=== PATIENT | female | born 1960 | race Caucasian/White ===

== ENCOUNTER 2018-06-06 10:04 | Outpatient (CLI) | payer MEDICAID ==
[~2018-06-06] VITALS: Ht 167.6 cm; Wt 112.7 kg
--- NOTE | ~2018-06-06 | OP ---
PATIENT NAME: GENNY FOOTE MEDICAL RECORD: [id number] :60 LOCATION:D. D.5 ADMISSION DATE: SURGEON: EMA PETERSEN MD DATE OF OPERATION: 06/06/2018 PREOPERATIVE DIAGNOSES: 1. Sick sinus syndrome. 2. Atrial fibrillation. 3. Hypertension. POSTOPERATIVE DIAGNOSES: 1. Sick sinus syndrome. 2. Atrial fibrillation. 3. Hypertension. PROCEDURE: Left subclavian vein dual lead pacemaker placement. SURGEON: Ema Petersen MD CO-SURGEON: Claude Butts MD REPORT OF PROCEDURE: The patient's left chest was prepped and draped in sterile fashion. Then, 25 mL of 1% lidocaine with epinephrine was infused into the surrounding tissues. A skin incision was made on the left superior lateral aspect of the chest and a subcutaneous pouch was made over the pectoral fascia. Needle was used to cannulate the left subclavian vein times 2 and guidewires were advanced with ease. Fluoro was used to note that these wires were in good position in the venous system. The dilator trocar devices were placed over the wires and the wires and dilators were removed. The leads were advanced through the trocars. At this point, Dr. Butts positioned the leads appropriately in the atrium and ventricle. Once the leads were noted to be functioning appropriately, they were sutured into place with 0 Ti-Cron. The leads were then affixed to the pacemaker and the pacemaker was placed into the subcutaneous pouch and sutured to the pectoral fascia with a single interrupted 0 Ti-Cron. We irrigated out the wound with antibiotic solution and then reapproximated the subcutaneous tissues with interrupted 3-0 Vicryl. The skin was closed with running subcutaneous 5-0 Monocryl and dressed appropriately. COMPLICATIONS: None. CONDITION: Stable. ANESTHESIA: Local MAC. BLOOD LOSS: Minimal. TRANSINT:[id number] Voice Confirmation ID: [id number] DOCUMENT ID: [id number] OPERATIVE REPORT [id number] GENNY FOOTE CHRISTIAN MD at 1418 CC: [id number] DICTATION DATE: 06/06/18 1337 CAN PUSHER: 06/06/18 [id number] [place] [address]
--- NOTE | ~2018-06-06 | HEMODYNAMI ---
PATIENT:GENNY FOOTE MEDICAL RECORD: [id number] : 60 LOCATION:DSantiagoCAT ADMISSION DATE: 06/06/18 Generatedon:06/06/201813:39 Patient name: GENNY FOOTE Patient #: [id number] SSN: : 1960 Date of study: 06/06/2018 Page: Of Hemodynamic Procedure Report Patient Data Patient Demographics Procedure consent was obtained First Name: GENNY Gender: Female Last Name: QAMAR : 1960 [facility] Initial: E Age: 57 year(s) Patient #: [id number] Race: Unknown Additional ID: [id number] Contact details Address: [address] [address] State: [place] City: [place] Zip code: [address] Past Medical History Allergies Allergen Reaction Date Comments Reported Other allergy 06/06/2018 SULFA, LATEX Admission Admission Data Admission Date: 06/06/2018 Admission Time: 10:04 Lab Results Lab Result Date: 06/06/2018 Lab Result Time: 0:00 Biochemistry Name Units Result Min Max BUN mg/dl 8 --(*---)-- 7 18 Creatinine mg/dl 0.7 --(*---)-- 0.6 1.3 CBC Name Units Result Min Max Hemoglobin g/dl 13.2 -*(----)-- 13.5 17.5 Procedure Procedure Types Cath Procedure Diagnostic Procedure PPM/ICD PPM Dual Implant Sedation Charges Moderate Sedation up to 15 minutes Procedure Description Procedure Date Procedure Date: 06/06/2018 Procedure Start Time: 13:08 Procedure End Time: 13:37 Procedure Staff Name Function Claude Patrick MD Performing Physician Threesa Lopez RT Monitor Irlanda Vizcarra RT Scrub Rayo Aguilar RN Nurse Shaheen Brown MD Assisting physician Procedure Data Cath Procedure Fluoroscopy Diagnostic fluoroscopy Total fluoroscopy Time: 1.3 time: 1.3 min min Diagnostic fluoroscopy Total fluoroscopy dose: 50 dose: 50 mGy mGy Estimated blood loss: 10 ml Procedure Complications No complications Procedure Medications Medication Administration Route Dosage 0.9% NaCl I.V. 100 ml/hr Oxygen etCO2 Nasal cannula 2 l/min Lidocaine 1% with added to field 30 ml Epi Bupivacaine 0.5% added to field 10 ml Ancef Irrigation Topical 1 g (1gm/500ml NS) Ancef (1Gm/50ml NS) I.V.P.B 1 g Zofran I.V. 4 mg Versed I.V. 2 mg Fentanyl I.V. 100 mcg Versed I.V. 2 mg Fentanyl I.V. 50 mcg Hemodynamics Rest HGB: 13.2 (g/dl) Heart Rate: 60 (bpm) Snapshots Pre Cath Intra NCS Post Cath Vital Signs Time Heart Resp SPO2 etCO2 NIBP (mmHg) Rhythm Pain Sedation Rate (ipm) (%) (mmHg) Status Level (bpm) 12:54:16 65 23 100 36.8 191/75(143) NSR 0 (11) 10(A) , No pain 12:59:15 64 13 100 41.2 187/68(142) NSR 0 (11) 10(A) , No pain 13:04:12 60 12 100 38.2 183/65(125) NSR 0 (11) 10(A) , No pain 13:09:02 59 15 100 42 169/75(123) NSR 0 (11) 10(A) , No pain 13:13:51 66 17 100 37.5 163/67(107) NSR 0 (11) 10(A) , No pain 13:19:33 65 13 100 33 160/60(101) NSR 0 (11) 9(A) , No pain 13:24:18 68 14 99 36 160/65(98) NSR 0 (11) 9(A) , No pain 13:29:11 64 14 100 34.5 163/47(115) NSR 0 (11) 9(A) , No pain 13:34:00 66 26 100 33.7 164/61(113) NSR 0 (11) 9(A) , No pain Medications Time Medication Route Dose Verified Delivered Reason Notes Effectiv eness by by 12:55:10 0.9% NaCl I.V. 100 Rayo Rayo Per ml/hr Lauren Aguilar physician RN RN 12:55:19 Oxygen etCO2 2 Rayo Rayo Per Nasal l/min Lorigan Lorigan physician cannula RN RN 12:55:31 Lidocaine added 30 ml Rayo Rayo for local 1% with Epi to Lorigan Lorigan anesthetic field RN RN 12:56:50 Bupivacaine added 10 ml Rayo Rayo for local 0.5% to Lorigan Lorigan anesthetic field RN RN 12:57:25 Ancef Topical 1 g Rayo Rayo used for Irrigation Lorigan Lorigan procedure (1gm/500ml RN RN NS) 12:58:04 Ancef I.V.P.B 1 g Rayo Rayo Per (1Gm/50ml Lorigan Lorigan physician NS) RN RN 13:03:38 Zofran I.V. 4 mg Rayo Rayo for nausea Lorigan Lorshankar RN RN 13:08:49 Versed I.V. 2 mg Rayo Rayo for Lorigan Lorigan sedation RN RN 13:08:58 Fentanyl I.V. 100 Rayo Rayo for mcg Lorigan Lorigan sedation RN RN 13:10:25 Versed I.V. 2 mg Rayo Rayo for Lorigan Lorigan sedation RN RN 13:12:54 Fentanyl I.V. 50 Rayo Rayo for mcg Lorigan Lorigan sedation RN outsole beveler Log Time Note 12:34:15 Time tracking: Regular hours (M-F 7:00 - 5:00) 12:34:19 Plan of Care:Hemodynamics will remain stable., Cardiac rhythm will remain stable., Comfort level will be maintained., Respiratory function will remain adequate., Patient/ family verbilizes understanding of procedure., Procedure tolerated without complication., Recovers from procedure without complications.. 12:34:23 Rayo Aguilar RN sent for patient. Start room use. 12:40:49 Patient allergic to Other allergySULFA, LATEX 12:41:14 Lab Result : BUN 8 mg/dl 12:41:15 Lab Result : Creatinine 0.7 mg/dl 12:41:15 Lab Result : Hemoglobin 13.2 g/dl 12:42:18 Medtronic Advisa MRI PPM Dual Generator [id number] opened to sterile field. 12:42:34 Medtronic 4574-45 PPM Lead opened to sterile field. 12:42:41 Medtronic 4074-52 PPM Lead opened to sterile field. 12:44:47 Patient received from Pre/Post Procedure Room to [facility] 3 Alert and oriented. Tansferred to table in Supine position. 12:44:48 Warm blankets applied, and jaleesa hugger turned on for patient comfort. 12:44:49 Correct patient and procedure confirmed by team. 12:44:50 Signed procedure consent form obtained from patient. 12:44:51 ECG and BP/O2 sat monitors applied to patient. 12:52:38 Vital chart was started 12:52:39 Full Disclosure recording started 12:53:39 Baseline sample Acquired. 12:53:42 Rhythm: sinus rhythm 12:53:52 H&P Date Dictated: 05/19/2018 Within 30 days and on chart., H&P Addendum completed by physician on day of procedure. (MUST COMPLETE FOR ALL OUTPATIENTS). 12:53:53 Pre-procedure instructions explained to patient. 12:53:53 Pre-op teaching completed and patient verbalized understanding. 12:53:54 Family in patients room. 12:53:56 Patient NPO since Midnight. 12:53:58 Is the patient allergic to Iodine/contrast media? No. 12:54:00 Is patient on blood thinner?No 12:54:01 Patient diabetic? No. 12:54:03 Patient not . Patient is over age 55. 12:54:08 Previous problem with sedation/anesthesia? Yes NAUSEA 12:54:10 Snore? Yes 12:54:11 Sleep apnea? No 12:54:12 Deviated septum? No 12:54:13 Opens mouth fully? Yes 12:54:13 Sticks out tongue? Yes 12:54:15 Airway obstruction? No ? 12:54:17 Dentures? No ? 12:54:29 IV patent on arrival in left hand with 0.9% NaCl at O. 12:54:32 Lab results completed and on chart. 12:54:36 Left chest area was prepped with chlora-prep and draped in sterile fashion 12:54:37 Alarms reviewed by R. N. 12:54:37 Sharps counted by scrub and verified by R.N. 12:55:10 0.9% NaCl 100 ml/hr I.V. was administered by Rayo Aguilar RN; Per physician; 12:55:19 Oxygen 2 l/min etCO2 Nasal cannula was administered by Rayo Aguilar RN; Per physician; 12:55:19 Medtronic telemarketing representative KALEY DUNCAN present for procedure. 12:55:31 Lidocaine 1% with Epi 30 ml added to field was administered by Rayo Aguilar RN; for local anesthetic; 12:56:50 Bupivacaine 0.5% 10 ml added to field was administered by Rayo Aguilar RN; for local anesthetic; 12:57:25 Ancef Irrigation (1gm/500ml NS) 1 g Topical was administered by Rayo Aguilar RN; used for procedure; 12:58:04 Ancef (1Gm/50ml NS) 1 g I.V.P.B was administered by Rayo Aguilar RN; Per physician; 13:03:38 Zofran 4 mg I.V. was administered by Rayo Aguilar RN; for nausea; 13:03:55 Pre sharps counted by scrub and verified by RN: Sutures: 7; Sponges: 5; Stick needles: 2; Skin needles: 2; Blade: 1; Cautery: 1 13:03:57 Grounding pad site Left thigh. 13:03:58 Grounding pad site free from injury. 13:07:31 --------ALL STOP TIME OUT------ 13:07:31 Final Timeout: patient, procedure, and site verified with staff and physician. All members of the team are in agreement. 13:07:34 Left chest site verified by team. 13:07:37 Physical assessment completed. ASA score P 2 - A patient with mild systemic disease as per Claude Patrick MD. 13:07:41 Sedation plan: IV Moderate Sedation Medication:Versed, Fentanyl 13:07:48 Procedure started. 13:08:46 Lidocaine 1% w/epi and Bupivacaine 0.5% was administered to left subclavicular area by Shaheen Brown MD . 13:08:49 Versed 2 mg I.V. was administered by Rayo Aguilar RN; for sedation; 13:08:58 Fentanyl 100 mcg I.V. was administered by Rayo Aguilar RN; for sedation; 13:09:17 Incision made to left subclavicular area. 13:09:31 Mepilex Dressing (307118) opened to sterile field. 13:09:39 5-0 Monocryl PS3 [id number] opened to sterile field. 13:09:46 2-0 Ticron Multipack ([id number]) opened to sterile field. 13:09:52 3-0 Vicryl Single Pack [id number] opened to sterile field. 13:10:25 Versed 2 mg I.V. was administered by Rayo Aguilar RN; for sedation; 13:12:54 Fentanyl 50 mcg I.V. was administered by Rayo Aguilar RN; for sedation; 13:13:30 Generator pocket made/opened. 13:16:07 Left subclavian vein accessed with 7Fr Peel Away Sheath. 13:16:11 Left subclavian vein accessed with 7Fr Peel Away Sheath. 13:18:27 Ventricular lead inserted and advanced. 13:18:48 Atrial lead inserted and advanced. 13:20:12 Ventricular lead positioned. 13:20:27 Ventricular lead tested. 13:21:22 Ventricular lead repositioned. 13:21:24 Ventricular lead tested. 13:22:41 Atrial lead positioned. 13:23:05 Atrial lead tested. 13:23:48 Peel-a-way sheath was split and removed. 13:23:50 Peel-a-way sheath was split and removed. 13:24:25 PPM Dual was attached to lead(s) and inserted into pocket. 13:25:36 PPM Dual was inserted subcutaneously to left chest. 13:25:42 Device pocket was irrigated with Ancef. 13:26:22 Atrial lead attachment was completed with 2-0 ticron. 13:26:27 Ventricular lead attachment was completed with 2-0 ticron. 13:26:32 Generator was sutured in place with 2-0 ticron. 13:28:09 Parameters-- Generator: Mode: AAIR/DDDR. Lower Rate: 60bpm. Upper Rate: 130bpm. 13:28:43 Parameters--Ventricular P/R Wave: 11.5mV. Current: .4mA; Threshold: .5V; Impedence: 1740OHMS. 13:29:14 Parameters--Atrial P/R Wave: 3.8mV. Current: .6mA; Threshold: .4V; Impedence: 547OHMS. 13:29:36 Subcutaneous closure was completed with 3-0 vicryl. 13:29:40 Skin closure was completed with 5-0 monocryl. 13:31:37 Post sharps counted by scrub and verified by RN: Sutures: 7; Sponges: 5; Stick needles: 2; Skin needles: 2; Blade: 1; Cautery: 1 13:34:02 Procedure ended.(Physican Out) 13:34:21 Fluoroscopy time 01.30 minutes. 13:34:27 Fluoroscopy dose: 50 mGy 13:34:27 Flurop Dose total: 50 13:34:50 Lt Chest incision was dressed with Mepilex dressing. 13:34:57 Post procedure rhythm: paced 13:34:59 Estimated blood loss: 10 ml 13:35:01 Post procedure instruction explained to patient.Patient verbalizes understanding. 13:35:01 Patient needs reinforcement of post procedure teaching. 13:35:36 Procedure type changed to Cath procedure, Diagnostic procedure, PPM/ICD, PPM Dual Implant, Sedation Charges, Moderate Sedation up to 15 minutes 13:35:55 Procedure and supply charges have been captured, reviewed, submitted and are correct. 13:36:00 Procedure Complication : No complications 13:36:50 Vital chart was stopped 13:36:50 See physician's report for complete and final results. 13:36:53 Report given to PCU. 13:37:13 Patient transfered to PCU with Bed. 13:37:15 Procedure ended. 13:37:15 Full Disclosure recording stopped 13:37:18 End room use (Document Last) Device Usage Item Name Manufacture Quantity Catalog Hospital Part Current Minimal Lot# / Number Charge Number Stock Stock Serial# Code Medtronic Medtronic 1 [id number] 5 [id number] Advisa MRI EXP: PPM Dual 2019-06-17 Generator [id number] Medtronic Medtronic 1 4574-45 [id number] 5 [id number] 4574-45 PPM EXP: Lead 2020-03-16 [id number] Medtronic Medtronic 1 4074-52 [id number] [id number] 5 [id number] 4074-52 PPM EXP: Lead 2020-03-14 [id number] Mepilex Cardinal 1 [id number] [id number] 5 Dressing Health (266377) 5-0 Monocryl Ethicon 1 [id number] 610812 920814 5 PS3 [id number] 2-0 Ticron Ethicon 8 [id number] 134519 66525 839626 5 Multipack ([id number]) 3-0 Vicryl Ethicon 1 [id number] 203306 [id number] 5 Single Pack [id number] Signature Audit Friendly Stage Time Signature Unsigned Intra-Procedure 06/06/2018 Theresa Lopez 1:38:59 PM RT(R) Signatures Monitor : Theresa Lopez Signature : RT Date : Time : [id number] [place] [address]
--- NOTE | ~2018-06-06 | OP ---
PATIENT NAME: GENNY FOOTE MEDICAL RECORD: [id number] :60 LOCATION:D.CAT ADMISSION DATE: SURGEON: JUVENCIO LANGE MD DATE OF OPERATION: 06/06/2018 PROCEDURE: Lead portion of permanent pacemaker placement. INDICATION: Sick sinus syndrome pauses. SURGEON: Shaheen Brown MD DESCRIPTION OF PROCEDURE: After left subclavian was cannulated via direct visualization via Dr. Brown first under fluoroscopic guidance, I placed the RV lead in RV apex without difficulty. After adequate thresholds and R waves were obtained, again under fluoroscopic guidance, I placed the right atrial lead in the right atrial appendage without difficulty. After adequate P waves and thresholds were again obtained, the leads were passed through the appropriate pole of the generator and the pocket was closed via Dr. Brown. IMPRESSION: Successful lead portion of permanent pacemaker placement. ESTIMATED BLOOD LOSS: Minimal. COMPLICATIONS: None. DISPOSITION: To the floor, stable. TRANSINT:[id number] Voice Confirmation ID: [id number] DOCUMENT ID: [id number] JUVENCIO LANGE MD at 0816 CC: [id number] DICTATION DATE: 06/06/18 1332 THERMOMETER PRODUCTION WORKER: 06/06/18 1339 DEP CLI 06/07/18 [id number] [place] [address]
[2018-06-06] MEDS ORDERED: FLECAINIDE ACET50 MG PO (10:33)
[2018-06-06] MEDS ORDERED: DITROPAN X10 MG/BOTT PO (10:33)
[2018-06-06] MEDS ORDERED: LISINOPRIL10 MG PO (10:34)
[2018-06-06] MEDS ORDERED: ADVIL200 MG PO (10:34)
[2018-06-06 10:42] VITALS: BP 190/73; BMI 40.1
[2018-06-06 10:58] LABS: HEMATOCRIT 39.6 % (36.0-48.0); HEMOGLOBIN 13.2 g/dL (12-16); MCH 27.7 pg (26.0-34.0); MCHC 33.3 g/dL (31.0-37.0); MEAN PLATELET VOLUME 9.6 fL (7.4-10.4); RBC 4.77 10x6/uL (4.00-5.40); RDW 14.3 % (11.5-14.5); WBC 3.3 10x3/uL (4.8-10.8)
[2018-06-06 11:20] LABS: APTT 29.2 SECONDS (22.8-39.4); INR 1.04 (0.85-1.17); PROTIME 13.2 SECONDS (11.6-15.0)
[2018-06-06 12:18] LABS: CALC OSMOLALITY 275 mosm/kg (275-300); CALCIUM 8.4 mg/dL (8.5-10.1); CARBON DIOXIDE 32.4 mmol/L (21.0-32.0); CHLORIDE - SERUM 105 mmol/L (98-107); CREATININE - SERUM 0.7 mg/dL (0.6-1.3); GLUCOSE 91 mg/dL (74-106); POTASSIUM - SERUM 4.1 mmol/L (3.5-5.1); SODIUM 139 mmol/L (136-145); UREA NITROGEN 8 mg/dL (7-18); eGFR NON AFRICAN AMERICAN > 90 mL/min (90-120)
[2018-06-06 14:29] VITALS: Ht 167.6 cm; Wt 112.7 kg
[2018-06-06 19:52] VITALS: BP 156/55
[2018-06-07 00:32] VITALS: BP 169/50
[2018-06-07 05:07] VITALS: BP 154/56
[2018-06-07 08:10] VITALS: BP 155/65
== END 2018-06-07 10:24 | disposition home or self-care (01) ==
LOC: D.CATH 10:04 → D.M2 13:38 → D.CATH 06-07 10:24
PROVIDERS: Internal Medicine Interventional Cardiology
DX: I49.5 Sick sinus syndrome (principal); I10 Essential (primary) hypertension; Z01.812 Encounter for preprocedural laboratory examination